=== PATIENT | female | born 1970 | race Hispanic/Latino ===

== ENCOUNTER 2017-09-01 19:57 | Emergency (ER) | payer BC ==
[~2017-09-01] VITALS: Ht 144.8 cm; Wt 69.4 kg
[2017-09-01] MEDS ORDERED: MEDDOSEPAK PO (20:29)
[2017-09-01 20:40] VITALS: BP 112/68
== END 2017-09-01 20:40 | disposition home or self-care (01) | DRG 918 ==
LOC: ED 19:57
DX: T63.481A Toxic effect of venom of other arthropod, accidental (unintentional), initial encounter (principal); R22.31 Localized swelling, mass and lump, right upper limb; Y92.009 Unspecified place in unspecified non-institutional (private) residence as the place of occurrence of the external cause

== ENCOUNTER 2018-10-25 17:36 | Emergency (ER) | payer BC ==
[~2018-10-25] VITALS: Ht 144.8 cm; Wt 73.6 kg
[~2018-10-25 17:36] MED LIST: MEDDOSEPAK PO
[2018-10-25] MEDS ORDERED: GENTAMICIN SULF5 ML OD (18:27)
[2018-10-25 18:40] VITALS: BP 146/89
== END 2018-10-25 18:40 | disposition home or self-care (01) | DRG 125 ==
LOC: ED 17:36
DX: S05.01XA Injury of conjunctiva and corneal abrasion without foreign body, right eye, initial encounter (principal); X58.XXXA Exposure to other specified factors, initial encounter

== ENCOUNTER 2020-01-14 12:29 | Emergency (ER) | payer BC ==
[~2020-01-14] VITALS: Ht 144.8 cm; Wt 72.0 kg
[~2020-01-14 12:29] MED LIST changes: +GENTAMICIN SULF5 ML OD
[2020-01-14] MEDS ORDERED: (None)3.5 GM OD (13:56)
[2020-01-14] MEDS ORDERED: GENTAMICIN SULF5 ML OD (13:56)
[2020-01-14 14:04] VITALS: BP 125/67
== END 2020-01-14 14:09 | disposition home or self-care (01) | DRG 125 ==
LOC: ED 12:29
DX: S05.01XA Injury of conjunctiva and corneal abrasion without foreign body, right eye, initial encounter (principal); X58.XXXA Exposure to other specified factors, initial encounter